=== PATIENT | male | born 1935 | race Caucasian/White ===

== ENCOUNTER → 2016-03-01 | Outpatient (CLI) | payer OTHER ==
[~2016-03-01] MED LIST: CARDIZEM CD180 MG; CORDARONE; COUMADIN OR; GINKGO BILOBA40 M1; GLUCOSAMINE CH1 EAC7; HYDROCODON-ACE1 EAC7 PO; MULTIVITAMINS; PRAVASTATIN SOD20 MG PO
== END ==
LOC: RAD 09:43
DX: M47.812 Spondylosis without myelopathy or radiculopathy, cervical region (principal); M54.2 Cervicalgia

== ENCOUNTER → 2017-01-09 | Outpatient (CLI) | payer OTHER ==
[~2017-01-09] VITALS: Ht 175.3 cm; Wt 79.4 kg
[~2017-01-09] MED LIST changes: +COZAAR 50 MG TA50 M2 PO; +PROBIOTIC1 EAC1 PO; +VANCOMYCIN HCL10 GM PO; +VITAMIN B-121000 MC2 PO; +VITAMIN D3400 UNIT PO; +VOLTAREN GEL 1100 G1 TOP
--- NOTE | ~2017-01-09 | HPC ---
[facility] [address] [place] [address] PAIN MANAGEMENT CONSULTATION Name: TONNY FRIEDMAN JR Room #: REG JESUS Mary#: [id number] Admission: 01/09/17 Attend Phys: Jeremias Guerra DO Discharge: Date of : 33 Report #: [id number] THIS REPORT FOR: //name// CC: Camden Guerra DATE OF SERVICE: 01/09/2017 The patient is a very pleasant 81-year-old gentleman, seen in consultation at the request of Dr. Johnston for evaluation of pain, neck, right shoulder and upper arm. The patient was prior seen in the Pain Clinic back in 2010 for lumbar radicular symptoms, somewhat lost to follow up. He returns to Pain Clinic today noting he developed pain in the right neck and shoulder, has been present for about a year, started without any antecedent trauma and overuse. Pain is exacerbated with any and all cervical movements. He has taken Tylenol, BenGay and topical Aspercreme with some efficacy. He has no radiation of the arm pain; however, the neck does wake him from sleep. Rates it a 9 on a VAS. Describes it as continuous, aching sensation, exacerbated with movement of the head, primarily rotating to the left and moving the right shoulder. Heating pad does seem to help some. Again, no specific radicular symptoms noted. No hand, arm weakness or paresthesia. REVIEW OF SYSTEMS: Complete review of systems attached to chart and was gone over with the patient. A pleasant 81-year-old gentleman recently hospitalized in November for gastritis, diarrhea and Clostridium difficile. He completed a course of vancomycin about 7-10 days ago, notes his stools are starting to firm up. History of hypertension, scarlet fever, skin cancer, atrial fibrillation. Prior decompressive laminectomy in 1976. Again, was treated for lumbar radicular symptoms with transforaminal epidural injections in 2010. He has had a right total knee arthroplasty in 2001, left total knee arthroplasty in 2009. He has been retired for 25 years. Pain impact score is quite high, averaging 70/70. PHYSICAL EXAMINATION: Reveals a 5 feet 9 inches, 175 pounds gentleman, in moderate distress. Blood pressure is 118/67, pulse 84, respirations 16. Cranial nerves 2-12 are grossly intact. Pupils are equal, react to light and accommodation. Extraocular muscles are intact. Cervical range of motion is limited, very tender in the splenius capitis, trapezius and the right side. Tender over the posterior occipital area and superior cervical facets. Upper extremity strength, however, is symmetric about 4/5 to all muscle groups tested. Deep tendon reflexes are preserved for the biceps, triceps, brachioradialis. [facility] [address] [place] [address] PAIN MANAGEMENT CONSULTATION Name: TONNY FRIEDMAN JR Room #: REG JESUS Hernandez#: [id number] Admission: 01/09/17 Attend Phys: Jeremias Guerra DO Discharge: Date of : 33 Report #: [id number] Grasp is symmetric. Tinel's is negative. Does have some thoracic kyphosis. Alert and oriented to person, place and time, judged to be a reasonable historian. Thyroid is modestly enlarged. Heart is regular and rhythmical without murmur. Lungs are clear to auscultation. Gait is tandem. DIAGNOSTIC STUDIES: There is x-rays of the cervical spine from 03/01/2016 noting DJD in the cervical spine. ASSESSMENT: Symptomatic cervical spondylosis, myofascial pain component in a gentleman with history of atrial fibrillation, currently anticoagulated. RECOMMENDATIONS: 1. Voltaren gel topically to the right neck and shoulder. 2. Trigger point injections today to the right splenius capitis and trapezius. 3. Follow up in 2 weeks for reevaluation. We will have the patient hold Coumadin for 5 days in consideration of facet joint injection under fluoroscopy at next visit if indicated clinically. Thank you for allowing me to participate in the patient's care. I will keep you abreast of his progress. PROCEDURE NOTE: Trigger point injection x 2. DESCRIPTION OF PROCEDURE: After written informed consent was obtained, the patient was placed in the prone position. Skin overlying the right splenius capitis and right trapezius were identified, cleansed with alcohol. Using a 25-gauge needle, 40 mg triamcinolone plus 5 mL of 0.5% preservative-free bupivacaine plus 1.5% preservative-free Xylocaine with 1:200,000 epinephrine was injected equally amongst the 2 discrete trigger points. Both needles removed. The area of cleansed and Band-Aids applied. The patient was told to use ice to the area today. Follow up in 2 weeks as noted. <ELECTRONICALLY SIGNED> By: Jeremias Guerra DO 01/11/17 0834 [id number] [id number] Jeremias Guerra DO /nt
[2017-01-09 13:05] VITALS: BP 118/67
== END | disposition home or self-care (01) ==
LOC: PAIN 07:34
DX: M79.1 Myalgia (principal); M47.9 Spondylosis, unspecified; I48.91 Unspecified atrial fibrillation; I10 Essential (primary) hypertension

== ENCOUNTER → 2017-04-11 | Outpatient (CLI) | payer OTHER ==
[~2017-04-11] MED LIST changes: +TYLENOL EXTRA500 MG PO
== END ==
LOC: MRI 08:58
DX: M47.892 Other spondylosis, cervical region (principal); M48.02 Spinal stenosis, cervical region

== ENCOUNTER → 2018-01-03 | Outpatient (CLI) | payer OTHER | LOC: CAT 09:43 | DX: M47.812 Spondylosis without myelopathy or radiculopathy, cervical region (principal); M46.02 Spinal enthesopathy, cervical region ==

== ENCOUNTER → 2018-01-25 | Outpatient (CLI) | payer OTHER ==
[~2018-01-25] VITALS: Ht 175.3 cm; Wt 82.6 kg
[~2018-01-25] MED LIST changes: +NORCO 5-325 TA1 EACH PO; +OXYBUTYNIN 5 MG5 M2 PO
--- NOTE | ~2018-01-25 | HPC ---
[facility] [place] [address] PAIN MANAGEMENT CONSULTATION Name: TONNY FRIEDMAN Room #: REG JESUS FarahBrea#: [id number] Admission: 01/25/18 Attend Phys: Jerry Freeman MD Discharge: Date of : 33 Report #: [id number] THIS REPORT FOR: //name// CC: Camden Freeman DATE OF SERVICE: 01/25/2018 CHIEF COMPLAINT: Cervical pain radiating up into the right occiput. The patient returns to pain clinic today with cervical spondylosis. He now has a CT scan of review performed within the last few months that demonstrates very clearly a C1-C2 severely erosive arthritic joint. This correlates well with his pain. It is tender along the area of the joint and radiates up through the occiput. His most painful activity is rotating his head when he is driving his car. He is unable to take anti-inflammatory drugs due to his use of Coumadin for atrial fibrillation. He has received cervical facet injections previously at C5-C6 and C6-C7 in the past that were of limited benefit. Dr. Guerra provided those injections for him in 2017. CURRENT MEDICINES: Coumadin; multivitamins; losartan; vitamin B12; cholecalciferol; lactobacillus; diclofenac gel intermittently, he does not use it regularly; Tylenol; oxybutynin and he has some [place], but he takes it only for severe pain. ALLERGIES: PENICILLIN. PAST MEDICAL HISTORY: Osteoarthritis with bilateral knee replacements, left in 2001, right in 2009; chronic back pain with lumbar surgery in 1976. History of bursitis. History of atrial fibrillation, on Coumadin. SOCIAL HISTORY: He lives independently. He is able to drive a car and take care of himself in every regard. He says that the pain in his neck, however, is so severe that he is miserable. He denies use of tobacco or alcohol. REVIEW OF SYSTEMS: Positive for some loss of appetite and weight loss. Chronic headaches of an occipital nature related to the referred joint. PHYSICAL EXAMINATION: GENERAL: He is a pleasant gentleman, alert and oriented. No signs of dementia. VITAL SIGNS: His blood pressure is 136/77, heart rate 77, respirations 18. He [facility] [address] [place] [address] PAIN MANAGEMENT CONSULTATION Name: TONNY FRIEDMAN Room #: [facility]#: [id number] Admission: 01/25/18 Attend Phys: Jerry Freeman MD Discharge: Date of : 33 Report #: [id number] is 5 feet 9 inches, 182 pounds, BMI of 26.9. HEENT: Pupils were equal, round, react to light. EOMs are intact. He has some basal skin cancers noted. Examination of the occiput reveals minimal tenderness. NECK: Reveals marked discomfort with rotational movements, particularly rotation to the left, which exacerbates pain in the right upper neck consistent with a C1-C2 arthritis. Localized tenderness there. Lateral tilt also exacerbates pain on the ipsilateral right side. Forward flexion and extension of the neck minimally affect his pain. CHEST: Clear. CARDIAC: Rhythm is irregularly irregular. CT scan is reviewed and I also showed the patient and his daughter the clear evidence of the erosion of the endplates of the lateral masses at C1-C2 on the right. 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 Traumatic unilateral right C1-C2 arthritis. RECOMMENDATION: 1. The most conservative approach here would be to manage this with medication. Unfortunately, he cannot take oral nonsteroidal anti-inflammatory drugs safely while on Coumadin. He can use diclofenac gel, but it must be used 3 times a day to be effective and he must use it continuously. There may be some slight risk with this and its systemic absorption, but it is acceptable, I think if he gets relief. 2. I would suggest this is a gentleman who can continue to use daily hydrocodone indefinitely for chronic pain. I would start at 1/2 of a 5 mg tablet up to 3 times a day and he can use a full tablet for severe pains. He should be cautious about cognitive side effects, dizziness, lightheadedness, and watch for constipation. We discussed the opioid crisis in some detail and the use of opioids appropriately for chronic pain. I believe that this is one of those instances. We have many patients in their 80s, even in their 90s who effectively have used opioid medication as the safest option. 3. An injection can be performed, in fact, I have done so for a very similar case in [place], [place] in October of this year. The injection was dramatic in its relief; however, it was not therapeutic to the point that the duration of response lasted more than 6 weeks. Pain was back to baseline within that timeframe. It is a dangerous injection with the proximity of vertebral artery as it makes its curve and placing a needle in this area repeatedly I would not see as a long-term option. I do not believe it even is necessary as a diagnostic procedure at this time given the findings on the CT scan. A surgical option is available. Dr. Nettles performed the definitive surgery for the patient who is in his early 70s. I would refer the patient back to Dr. Nettles to discuss that option, although he is reluctant to pursue a surgical [address] [address] PAIN MANAGEMENT CONSULTATION Name: TONNY FRIEDMAN JR Room #: REG [facility].#: [id number] Admission: 01/25/18 Attend Phys: Jerry Freeman MD Discharge: Date of : 33 Report #: [id number] treatment. We will continue now on hydrocodone and he was given 2 prescriptions for the next 2 months for 60 tablets per month. I am available for followup in 2 months or if this is not effective or side effects develop. Questions were asked and answered. By: [id number] Jerry Freeman MD /nt
[2018-01-25 14:07] VITALS: BP 136/77
== END ==
LOC: PAIN 08:47
DX: M46.82 Other specified inflammatory spondylopathies, cervical region (principal); M47.812 Spondylosis without myelopathy or radiculopathy, cervical region; Z79.899 Other long term (current) drug therapy

== ENCOUNTER → 2018-06-11 | Outpatient (CLI) | payer OTHER ==
[~2018-06-11] VITALS: Ht 175.3 cm; Wt 83.0 kg
[2018-06-11 08:59] VITALS: BP 131/71
--- NOTE | 2018-06-11 09:01 | NUR ---
Pain Clinic Assessment: 1. History of Osteoarthritis: HANDS,KNEES SPINE History of Rheumatoid Arthritis: Not Applicable 2. Height: 5 ft. 9 in. 175.3 cm. Weight: 183.0 lb. oz. 83.008 kg. Patient's BMI: 35.7 3. Vital Signs: BP: 131/71 Pulse: 81 Resp: 16 Temp: 02 Sat: 96 ECG Mon: 4. Pain Intensity: 0 5. Fall Risk: Dizziness: N Needs help standing or walking: N Fallen in the last 3 months: N Fall risk comments: 6. Patient on Blood Thinner: Warfarin (Coumadin) 7. History of Hypertension: Y 8. Opioid Therapy greater than 6 weeks: N Opiate Contract Signed: 9. Risk Assessment Tool Provided: L0W-0 10. Functional Assessment Tool: 11. Recreational Drug Use: Never Drug Type: Tobacco Use: Never Smoker Tobacco Type: Amount or Packs/day: How Many Years: Alcohol Use: Yes Frequency: Special Occasions Quant:
--- NOTE | 2018-06-12 09:07 | HPC ---
[facility] [place] [address] [address] [place] [address] PAIN MANAGEMENT CONSULTATION Name: TONNY FRIEDMAN Room #: REG JESUS CaicedoBreaSamiBrea#: [id number] Admission: 06/11/18 ������������������ Attend Phys: Jerry Freeman MD Discharge: ������������������ Date of : 33 Report #: [id number] THIS REPORT FOR: //name// CC: Camden Freeman DATE OF SERVICE: 06/11/2018 REASON FOR VISIT: Followup visit for chronic intractable cervical pain with spondylosis and significant C1-C2 degenerative changes. HISTORY OF PRESENT ILLNESS: The patient is a pleasant 83-year-old who was seen today in followup for medication management of chronic cervicalgia. He has degenerative spondylosis of the cervical and lumbar spine. His primary pain has been cervicalgia, which radiates into the occiput. He has been treated with trigger point injections as well as facet injections, most recently in January of 2017. He received benefit but the duration was short. We began treating him with hydrocodone at the lowest effective dose. He currently is taking one-half of a hydrocodone 5/325 daily 4 times on a schedule and is found that this is significantly helpful for his neck pain. He scores his pain today is 0/10. He has some arthritis of the knees as well. He does use some diclofenac gel. He is unable to take nonsteroidal anti-inflammatory drugs safely due to his ongoing use of Coumadin for atrial fibrillation. PQRS REVIEW: 1. He does have osteoarthritis as noted, particularly knees and has undergone bilateral knee replacements. He has spondylosis throughout the spine. 2. Pain score 0/10. 3. Denies use of tobacco or alcohol. 4. He is not a fall risk, nor has he fallen in the last 3 months. 5. He is on Coumadin for atrial fibrillation and follows closely with his primary care service. He is currently not treated for hypertension. He has atrial fibrillation. 6. He has completed an opioid agreement with our clinic. We have reviewed the terms of that agreement. He has completed an opioid risk tool and is considered at low risk for any addiction. We discussed the proper use of medication. He is grateful for the relief, it provides and has no significant side effects. In fact, he denies side effects completely. He carefully safeguards his medication. He is able to live independently and feels that his ability to do so is greatly enhanced by his medication. PHYSICAL EXAMINATION: GENERAL: He is bright sharp 83-year-old pleasant, alert and oriented. No signs [address] [address] PAIN MANAGEMENT CONSULTATION Name: TONNY FRIEDMAN [facility] #[facility] [id number] Admission: 06/11/18 ������������������ Attend Phys: Jerry Freeman MD Discharge: ������������������ Date of : 33 Report #: [id number] of anxiety, depression or overmedication. VITAL SIGNS: Blood pressure 131/71, heart rate 81 and respirations 16. His BMI is 35. MUSCULOSKELETAL: Moves easily from sitting to standing position, walks with a slow but steady gait. Examination of the spine reveals significant rotational limitations of the cervical spine. He has about 15%-25% of normal rotation. He has restrictions also in lateral tilt and forward flexion. Pain is quite minimal with these movements as long as are not taken to extreme. CARDIAC: Rhythm is irregularly irregular today. IMPRESSION: 1. Chronic cervicalgia with C1-C2 erosive arthritis. 2. Atrial fibrillation. 3. Osteoarthritis. RECOMMENDATIONS: We will continue his medication at 3-month intervals. We will follow up per terms of our agreement. We discussed the importance of safeguarding medications and followup visit is planned in September-October of 2018. ��������������������������������������������� <ELECTRONICALLY SIGNED> ���������������������������������������� By: Jerry Freeman MD ��������������������������������������������� 06/12/18 0907 0930 0122 Jerry Freeman MD /nt
== END ==
LOC: PAIN 06:50
DX: G89.29 Other chronic pain (principal); M47.812 Spondylosis without myelopathy or radiculopathy, cervical region; I48.91 Unspecified atrial fibrillation; M19.90 Unspecified osteoarthritis, unspecified site; Z96.653 Presence of artificial knee joint, bilateral; Z79.891 Long term (current) use of opiate analgesic

== ENCOUNTER → 2018-09-24 | Outpatient (CLI) | payer OTHER ==
[~2018-09-24] VITALS: Ht 175.3 cm; Wt 81.4 kg
[2018-09-24 09:18] VITALS: BP 153/84
--- NOTE | 2018-09-24 09:20 | NUR ---
Pain Clinic Assessment: 1. History of Osteoarthritis: HANDS,KNEES SPINE History of Rheumatoid Arthritis: Not Applicable 2. Height: 5 ft. 9 in. 175.3 cm. Weight: 179.4 lb. oz. 81.375 kg. Patient's BMI: 26.5 3. Vital Signs: BP: 153/84 Pulse: 60 Resp: 16 Temp: 02 Sat: 97 ECG Mon: 4. Pain Intensity: 0 5. Fall Risk: Dizziness: N Needs help standing or walking: N Fallen in the last 3 months: N Fall risk comments: 6. Patient on Blood Thinner: Warfarin (Coumadin) 7. History of Hypertension: Y 8. Opioid Therapy greater than 6 weeks: N Opiate Contract Signed: 9. Risk Assessment Tool Provided: L0W-0 10. Functional Assessment Tool: 11. Recreational Drug Use: Never Drug Type: Tobacco Use: Never Smoker Tobacco Type: Amount or Packs/day: How Many Years: Alcohol Use: Yes Frequency: Weekly Quant: 4
--- NOTE | 2018-09-25 08:14 | HPC ---
[facility] [address] [place] [address] PAIN MANAGEMENT CONSULTATION Name: TONNY FRIEDMAN JR Room #: REG TOROBony Hernandez#: [id number] Admission: 09/24/18 Attend Phys: Kandace Nagel Discharge: Date of : 33 Report #: [id number] THIS REPORT FOR: //name// CC: Kandace Johnston DATE OF SERVICE: 09/24/2018 CHIEF COMPLAINT: Chronic intractable cervical pain with spondylosis. HISTORY OF PRESENT ILLNESS: This is a very pleasant 83-year-old gentleman who returns to the pain clinic today for pain in his right neck that radiates into his occipital area. He rates his pain score currently as a 0 because the medicines that he takes are very beneficial. He does tell me that turning his head to the left increases his pain. He takes half a tablet of his hydrocodone several times a day and finds it very beneficial. He denies any problems with constipation or daytime sleepiness. He would like refills of that medicine today. The patient tells me that he is going to have a urological procedure on 10/03 and then a hammertoe surgery on 10/15. The patient will need to be off his Coumadin for this and is wondering about pain medications for these procedures. ALLERGIES: PENICILLIN. CURRENT MEDICATIONS: Hydrocodone 5/325 b.i.d., oxybutynin 5 mg at bedtime, probiotic, vitamin D, vitamin B12, Cozaar, multivitamin, pravastatin and Coumadin. PQRS: 1. He has osteoarthritis in his knees and spondylosis in his lumbar spine. He denies any rheumatoid arthritis. 2. Height is 5 feet 9 inches, weight is 179, BMI is 26. 3. Vital signs, 153/84, pulse is 60, respirations 16, oxygen sat is 97. 4. Pain score is 0. 5. Denies dizziness, does not need help walking or standing, has not fallen in the last 3 months. 6. The patient is on Coumadin and also takes medicine for hypertension. 7. Opioid therapy is greater than 6 weeks; therefore, an opioid signed contract is on the chart. 8. His risk assessment is low. His functional assessment is . 9. Recreational drug use, he denies. He is not a smoker and occasionally drinks alcohol. We did check the prescription monitoring system. The patient is filling appropriately for his medications. We will check a random drug screen on this [address] [address] PAIN MANAGEMENT CONSULTATION Name: TONNY FRIEDMAN JR Room #: REG CLBony Hernandez#: [id number] Admission: 09/24/18 Attend Phys: Kandace Nagel Discharge: Date of : 33 Report #: [id number] patient since there is not one on the chart previously. PHYSICAL EXAMINATION: GENERAL: This is very alert and orientated 83-year-old that appears younger than his stated age. No signs of overmedication. HEENT: Normocephalic, atraumatic. Extraocular eye muscles are intact. Mucous membranes are moist. MUSCULOSKELETAL: The patient complains of tenderness in his right cervical spine, worse with lateral tilt and forward flexion that does increase his pain. Examination reveals significant rotational limitations of the cervical spine. He moves easily from sitting to standing position, walks with a steady gait. His upper and lower extremity strength judged to be 5/5 in all major muscle groups. IMPRESSION: 1. Chronic cervicalgia with a C1-C2 erosive arthritis. 2. Atrial fibrillation. 3. Osteoarthritis. 4. Management of high risk medications under terms of written opioid agreement. We reviewed the fact that opiate medications are being used to provide analgesia adequate to support activities of daily living, not attempting to achieve a specific pain score on the 0-10 Visual Analog Scale. The current opiate medications are providing sufficient analgesia to allow the patient to participate in activities of daily living. The patient is not exhibiting any aberrant behavior suggestive of drug diversion. The patient is not having any adverse reactions to medications. The patient is not suffering from daytime somnolence or mental acuity changes. The patient is managing opiate-induced constipation with appropriate [id number] agents and dietary considerations. The patient was counseled on concern for caution with operating a motor vehicle while using opiate medications. A physical exam was performed and the patient's functional status was evaluated. All patients with back pain were advised against the bed rest greater than 4 days and were advised to return to normal activities. Pain score assessment was noted and the treatment plan was reviewed with the patient. All current medications, both prescribed and OTC were reviewed and reconciled on the electronic medical record. Tobacco screening was accomplished and smoking cessation was advised when indicated. BMI was noted and diet/exercise modification was recommended for all patients following outside normal parameters. I reviewed with the patient today their responsibilities to safeguard prescription medications, reviewed their responsibility to utilize medications only as prescribed by the physician. They are to seek and receive pain medications only from 1 physician group ([facility]). They are to use [address] [address] PAIN MANAGEMENT CONSULTATION Name: TONNY FRIEDMAN JR Room #: REG JESUS Hernandez#: [id number] Admission: 09/24/18 Attend Phys: Kandace Nagel Discharge: Date of : 33 Report #: [id number] pharmacy and keep the clinic informed if they change pharmacies. Their responsibilities include making followup visits in a timely fashion and to avoid abrupt discontinuation of medication usage. Their responsibilities further include bringing their medications (bottles from the pharmacy with residual pills) to the visit for possible confirmation of pill counts and the patient understands it is their responsibility to submit to random drug screens to ensure both that the medications prescribed are present, and that no other controlled substances are present. All prescriptions provided today were generated electronically. PLAN: 1. We discussed treatment options with the patient today. The patient finds the hydrocodone very beneficial, taking half a tablet several times a day. Scripts for hydrocodone were refilled today for #90 the first month and #60 to release in 4 weeks and #60 to release in 8 weeks. 2. We did talk about his upcoming surgeries and postoperative pain control. I encouraged the patient to decrease his hydrocodone use for several days prior to each procedure; therefore, he will hopefully have better pain control postoperatively. The patient verbalizes understanding. We did increase his first month of medications to 3 full tablets a day if he needs it, and therefore, decrease back to his 60 tablets in the 4-week refills. The patient verbalizes understanding how to take his pain medicines. He will call if this is not a significant enough increase after his surgeries. He knows not to take medications from his surgeon since he is under contract with us. 3. The patient is seen in collaboration today with Dr. Jerry Freeman, who did see the patient as well today. <ELECTRONICALLY SIGNED> By: Kandace Nagel 09/25/18 0814 1153 [id number] Kandace Nagel /nasima
== END ==
LOC: PAIN 06:50
DX: M47.812 Spondylosis without myelopathy or radiculopathy, cervical region (principal); I48.91 Unspecified atrial fibrillation; M19.90 Unspecified osteoarthritis, unspecified site; Z79.891 Long term (current) use of opiate analgesic; Z88.0 Allergy status to penicillin

== ENCOUNTER → 2018-11-19 | Outpatient (CLI) | payer OTHER ==
[~2018-11-19] VITALS: Ht 175.3 cm; Wt 79.1 kg
[2018-11-19 09:33] VITALS: BP 124/79
--- NOTE | 2018-11-19 09:41 | NUR ---
Pain Clinic Assessment: 1. History of Osteoarthritis: HANDS,KNEES SPINE History of Rheumatoid Arthritis: Not Applicable 2. Height: 5 ft. 9 in. 175.3 cm. Weight: 174.4 lb. oz. 79.107 kg. Patient's BMI: 25.7 3. Vital Signs: BP: 124/79 Pulse: 80 Resp: 16 Temp: 02 Sat: 98 ECG Mon: 4. Pain Intensity: 7 5. Fall Risk: Dizziness: N Needs help standing or walking: N Fallen in the last 3 months: N Fall risk comments: 6. Patient on Blood Thinner: Warfarin (Coumadin) 7. History of Hypertension: Y 8. Opioid Therapy greater than 6 weeks: N Opiate Contract Signed: 9. Risk Assessment Tool Provided: L0W-0 10. Functional Assessment Tool: 11. Recreational Drug Use: Never Drug Type: Tobacco Use: Never Smoker Tobacco Type: Amount or Packs/day: How Many Years: Alcohol Use: Yes Frequency: Quant:
--- NOTE | 2018-11-20 13:20 | HPC ---
[facility] [address] [place] [address] PAIN MANAGEMENT CONSULTATION Name: TONNY FRIEDMAN JR Room #: REG JESUS Hernandez#: [id number] Admission: 11/19/18 Attend Phys: Kandace Nagel Discharge: Date of : 33 Report #: [id number] THIS REPORT FOR: //name// CC: Kandace Nagel Camdenmehran Johnston DATE OF SERVICE: 11/19/2018 CHIEF COMPLAINT: Chronic intractable cervical pain with spondylosis. HISTORY OF PRESENT ILLNESS: This is a very pleasant 83-year-old gentleman who returns to the pain clinic today for refill of his medication that he uses to help treat his ongoing neck and occipital pain as well his right wrist and bilateral knee pain. He reports his pain score higher than normal today of a 7/10 due to achy, throbby, sharp pain from his arthritis since the weather has gotten colder. He said he has trouble turning his head and bending his knees, but his medication is very beneficial as well as using heating pads. He reports he does much better when the temperature is about 80 degrees. The patient tells me that since we last saw him, he had urological procedure done that took longer to recover that he had anticipated having to have an indwelling catheter for a while; therefore, he has not had his hammertoe surgery that has been postponed until later in January. He has also had several skin cancer lesions removed from his face and we will continue to have few more done in the next month he reports. ALLERGIES: PENICILLIN. CURRENT LIST OF MEDICATIONS: Hydrocodone 5/325 b.i.d. p.r.n., Tylenol Extra Strength p.r.n., Voltaren gel as needed, probiotic, vitamin D, vitamin B12, Cozaar 50 mg daily, multivitamin, pravastatin 20 mg daily and Coumadin 2 mg. PQRS: 1. He has osteoarthritis in his knees, hands and spondylolisthesis in his lumbar spine. He denies any rheumatoid arthritis. 2. Height is 5 feet 9 inches, weight is 174, BMI is 25. 3. Vital signs blood pressure 124/79, pulse is 80, respirations 16, oxygen sat is 98. 4. Pain score is 7/10. 5. Denies dizziness, does not need help walking or standing, has not fallen in the last 3 months. 6. The patient is on Coumadin as well as take medicines for hypertension. 7. Opioid therapy is greater than 6 weeks. 8. Risk assessment tool is low. Functional assessment is . 9. Recreational drug use, he denies. He is not a smoker and occasionally drinks alcohol. [address] [address] PAIN MANAGEMENT CONSULTATION Name: TONNY FRIEDMAN JR Room #: REG [facility] Mary#: [id number] Admission: 11/19/18 Attend Phys: Kandace Nagel Discharge: Date of : 33 Report #: [id number] According to the prescription monitoring system, the patient is filling appropriately for his medications in a timely fashion. He did fill some medications for his urology procedure from his urologist. PHYSICAL EXAMINATION: GENERAL: This is alert and orientated 83-year-old gentleman who appears younger than his stated age. He is placing his current pain score at 7/10 today. He has no signs of overmedication. HEENT: Normocephalic, atraumatic. Extraocular eye muscles are intact. Mucous membranes are moist. MUSCULOSKELETAL: He has tenderness in his cervical spine, worse with lateral tilt and forward flexion causes increase in his pain, especially on the right side. He moves easily from the sitting to standing position. He walks with a steady gait. He has bilateral knee tenderness as well as wrist tenderness today. His upper and lower extremity strength judged to be 5/5 in all major muscle groups. IMPRESSION: 1. 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 2. Atrial fibrillation with ongoing Coumadin therapy. 3. Osteoarthritis. 4. Management of high risk medications under terms of written opioid agreement. We reviewed the fact that opiate medications are being used to provide analgesia adequate to support activities of daily living, not attempting to achieve a specific pain score on the 0-10 Visual Analog Scale. The current opiate medications are providing sufficient analgesia to allow the patient to participate in activities of daily living. The patient is not exhibiting any aberrant behavior suggestive of drug diversion. The patient is not having any adverse reactions to medications. The patient is not suffering from daytime somnolence or mental acuity changes. The patient is managing opiate-induced constipation with appropriate auhn-epr-yinailf agents and dietary considerations. The patient was counseled on concern for caution with operating a motor vehicle while using opiate medications. A physical exam was performed and the patient's functional status was evaluated. All patients with back pain were advised against the bed rest greater than 4 days and were advised to return to normal activities. Pain score assessment was noted and the treatment plan was reviewed with the patient. All current medications, both prescribed and OTC were reviewed and reconciled on the electronic medical record. Tobacco screening was accomplished and smoking cessation was advised when indicated. BMI was noted and diet/exercise modification was recommended for all patients following outside normal parameters. [address] [address] PAIN MANAGEMENT CONSULTATION Name: TONNY FRIEDMAN JR Room #: REG JESUS Hernandez#: [id number] Admission: 11/19/18 Attend Phys: Kandace Nagel Discharge: Date of : 33 Report #: [id number] I reviewed with the patient today their responsibilities to safeguard prescription medications, reviewed their responsibility to utilize medications only as prescribed by the physician. They are to seek and receive pain medications only from 1 physician group ( [facility]). They are to use 1 pharmacy and keep the clinic informed if they change pharmacies. Their responsibilities include making followup visits in a timely fashion and to avoid abrupt discontinuation of medication usage. Their responsibilities further include bringing their medications (bottles from the pharmacy with residual pills) to the visit for possible confirmation of pill counts and the patient understands it is their responsibility to submit to random drug screens to ensure both that the medications prescribed are present, and that no other controlled substances are present. All prescriptions provided today were generated electronically. PLAN: 1. We discussed treatment options with the patient today. He finds the hydrocodone very beneficial taking a half to one tablet twice a day. We will refill his hydrocodone 5/325, #60 for today, 4-week and 8-week release. 2. The patient instructed to call us if he does schedule his hammertoe procedure prior to his next office visit, so we may adjust his hydrocodone use or he may get a small script from his electronics engineering technician and to inform us that he received this prescription. The patient verbalizes understanding. 3. The patient is seen in collaboration with Dr. Jerry Freeman today. <ELECTRONICALLY SIGNED> By: Kandace Nagel 11/20/18 1320 [id number] [id number] Kandace Nagel /nasima
== END ==
LOC: PAIN 07:15
DX: M54.2 Cervicalgia (principal); I48.91 Unspecified atrial fibrillation; M19.90 Unspecified osteoarthritis, unspecified site; Z79.891 Long term (current) use of opiate analgesic

== ENCOUNTER → 2019-02-21 | Outpatient (CLI) | payer OTHER ==
[~2019-02-21] VITALS: Ht 175.3 cm; Wt 80.3 kg
[2019-02-21 13:18] VITALS: BP 138/62
--- NOTE | 2019-02-21 13:44 | NUR ---
Pain Clinic Assessment: 1. History of Osteoarthritis: HANDS,KNEES SPINE History of Rheumatoid Arthritis: Not Applicable 2. Height: 5 ft. 9 in. 175.3 cm. Weight: 177.0 lb. oz. 80.287 kg. Patient's BMI: 26.1 3. Vital Signs: BP: 138/62 Pulse: 72 Resp: 20 Temp: 02 Sat: 100 ECG Mon: 4. Pain Intensity: 6 5. Fall Risk: Dizziness: N Needs help standing or walking: N Fallen in the last 3 months: N Fall risk comments: 6. Patient on Blood Thinner: Warfarin (Coumadin) 7. History of Hypertension: Y 8. Opioid Therapy greater than 6 weeks: N Opiate Contract Signed: 9. Risk Assessment Tool Provided: L0W-0 10. Functional Assessment Tool: 11. Recreational Drug Use: Never Drug Type: Tobacco Use: Never Smoker Tobacco Type: Amount or Packs/day: How Many Years: Alcohol Use: Yes Frequency: Quant:
--- NOTE | 2019-02-25 15:26 | HPC ---
[facility] [address] [place] [address] PAIN MANAGEMENT CONSULTATION Name: TONNY FRIEDMAN Room #: REG JESUS Mary#: [id number] Admission: 02/21/19 Attend Phys: Kandace Nagel Discharge: Date of : 33 Report #: [id number] THIS REPORT FOR: //name// CC: Kandace Freeman MD DATE OF SERVICE: 02/21/2019 CHIEF COMPLAINT: Chronic intractable cervical pain with spondylosis. HISTORY OF PRESENT ILLNESS: This is a very pleasant 83-year-old gentleman who returns to the pain clinic for refill of his hydrocodone medication. He finds this very beneficial in controlling his pain as well as he is using diclofenac gel on his occipital areas as well as on his feet where he does complain of discomfort related to a hammertoe. He also complains of bilateral knee pain. He feels that the colder weather has flared his arthritis, so he is having a slight increase in his pain, rating at a 6/10, but overall he feels the hydrocodone is much beneficial and enabling him to be as active as he would like. He denies any problems with daytime somnolence or constipation as a result of his medications. ALLERGIES: PENICILLIN. CURRENT LIST OF MEDICATIONS: Hydrocodone 5/325 b.i.d. p.r.n., Tylenol Extra Strength p.r.n., diclofenac gel, probiotic, vitamin D, vitamin B, Cozaar, multivitamin, pravastatin and Coumadin. PQRS: 1. He has osteoarthritis in his knees and spondylosis in his lumbar spine. He denies any rheumatoid arthritis. 2. Height is 5 feet 9 inches, weight is 177, BMI is 26. 3. Vital signs 138/62, pulse is 72, respirations 20, oxygen sat is 100. 4. Pain score 6/10. 5. Denies dizziness, does not need help walking or standing, has not fallen in the last 3 months. 6. The patient is on Coumadin therapy as well as hypertension medications. 7. Opioid therapy is greater than 6 weeks; therefore, opioid agreement will be placed in his chart. 8. Risk assessment tool is low. Functional assessment is . 9. Recreational drug use, he denies. He is not a smoker and occasionally drinks alcohol. 10. We did check the prescription monitoring system, the patient is filling appropriately for his medications in a timely fashion. According to the CDC guidelines, his morphine mEq is 10 morphine milliequivalents [place] [address] PAIN MANAGEMENT CONSULTATION Name: TONNY FRIEDMAN JR [id number] Admission: 02/21/19 Attend Phys: Kandace Nagel Discharge: Date of : 33 Report #: [id number] a recent drug screen on the chart that is appropriate as well. PHYSICAL EXAMINATION: GENERAL: This is alert and orientated 83-year-old gentleman who appears younger than his stated age. He has no signs of overmedication, rating his pain score today at 6/10. He is a good historian. HEENT: Normocephalic, atraumatic. Extraocular eye muscles are intact. Mucous membranes are moist. MUSCULOSKELETAL: He has tenderness in his cervical spine, worse with forward flexion. It does radiate into his right occipital area, which is tender as well. He moves easily from the sitting to standing position. He walks with a steady gait. He does complain of some right foot discomfort related to a hammertoe that is tender to the touch. Lower extremity strength judged to be 5/5 in all major muscle groups. IMPRESSION: 1. Chronic cervicalgia at the C1-C2, erosive arthritis. 2. Atrial fibrillation. 3. Osteoarthritis. 4. Management of high risk medications under terms of written opioid agreement. PLAN: 1. We discussed treatment options with the patient today. The patient finds his medication very beneficial. We will refill his hydrocodone 5/325, #60 for today, 4 weeks and 8-week release. The patient instructed to call for an appointment when he fills his last prescription. The patient is not needing any Voltaren gel refill today. 2. The patient is seen today under the collaboration with Dr. Jerry Freeman who I discussed this case with as well as Dr Bandar Guerra. <ELECTRONICALLY SIGNED> By: Kandace Nagel 02/25/19 1526 [id number] [id number] Kandace Nagel /nt
== END ==
LOC: PAIN 06:53
DX: M54.2 Cervicalgia (principal); I48.91 Unspecified atrial fibrillation; M19.90 Unspecified osteoarthritis, unspecified site; Z79.899 Other long term (current) drug therapy

== ENCOUNTER → 2019-03-26 | Outpatient (CLI) | payer OTHER ==
[~2019-03-26] MED LIST changes: +COUMADIN 1MG TAB1 M1 PO; +COUMADIN 2 MG TA2 M1 PO; -COUMADIN OR; +COZAAR 25 MG TA25 M1 PO; +HYDROCODON-ACE1 EAC5 PO; -MULTIVITAMINS; +MULTIVITAMINS PO
== END ==
LOC: SJCVC 10:13
DX: R94.31 Abnormal electrocardiogram [ECG] [EKG] (principal); I11.9 Hypertensive heart disease without heart failure; I48.91 Unspecified atrial fibrillation; I42.8 Other cardiomyopathies; G47.33 Obstructive sleep apnea (adult) (pediatric); E78.00 Pure hypercholesterolemia, unspecified; Z96.653 Presence of artificial knee joint, bilateral; Z79.899 Other long term (current) drug therapy

== ENCOUNTER 2019-04-16 09:14 | Day surgery (SDC) | payer OTHER ==
[~2019-04-16] VITALS: Ht 175.3 cm; Wt 81.6 kg
--- NOTE | ~2019-04-16 | O ---
[facility] [place] [address] OPERATIVE REPORT Name: TONNY FRIEDMAN Room #: DEP [facility]..#: [id number] Admission: 04/16/19 Attend Phys: Rojas Harris DPM Discharge: 04/16/19 Date of : 33 Report #: [id number] THIS REPORT FOR: cc: Camden oJhnston MD,Camden Harris,Rojas Ashraf DPM ~ CC: Rojas Johnston DATE OF SERVICE: 04/16/2019 PREOPERATIVE DIAGNOSIS: Hammertoe deformities 2 through 5 digits, right foot. POSTOPERATIVE DIAGNOSIS: Hammertoe deformities 2 through 5 digits, right foot. PROCEDURE: Arthrodesis second, third and fourth toes; right foot and arthroplasty fifth digit, right foot. ANESTHESIA: IV sedation, local nerve block. Hemostasis was applied well-padded tourniquet. ESTIMATED BLOOD LOSS: Minimal. COMPLICATIONS: There were no complications during the procedure or the anesthesia. INDICATION: Following is a preoperative course. This patient is a very active 84-year-old male who was hampered by painful hammertoe deformities on the right foot, making it difficult to be ambulatory. It was discussed with him to perform the hammertoe procedure allowing him to ambulate immediately postoperatively in order to keep him stable and in good strength for recovery. The patient has discontinued his warfarin for the last 5 days and he understands the risks and complications of surgery as well as technical aspects of the surgery. DESCRIPTION OF PROCEDURE: Following is the operative report. The patient was wheeled to the operating room in usual supine condition, transferred to the operating table, given IV sedation. Once the IV sedation was found to be adequate, local nerve block was given to the digits and the right foot. Upon reentering the operating room, anesthesia was checked and found to be adequate. Esmarch tourniquet was used to exsanguinate the blood from the right foot and the ankle tourniquet elevated to 250 mmHg. Attention was first directed to the second digit on the right foot where an extensor tenotomy was performed and a capsulotomy to the second MPJ dorsally which released the contracture of the second digit. Attention was then directed to the proximal interphalangeal joint [facility] [address] [place] [address] OPERATIVE REPORT Name: TONNY FRIEDMAN JR Room #: [facility].#: [id number] Admission: 04/16/19 Attend Phys: Rojas Harris DPM Discharge: 04/16/19 Date of : 33 Report #: [id number] where 2 converging semielliptical incisions were made and the proximal phalangeal head and base of the middle phalanx were resected using a sagittal saw. Using C-arm radiography, a cannulated wire was used to place the second toe in a rectus position. Next, the 2.4 cannulated screw was obtained and measured to be approximately 38 mm in length. This was placed in over the cannulated wire and confirmed good position. Clinically, the toe stayed in a rectus corrected position and closure of the skin performed with a horizontal mattress 4-0 nylon suture. The same procedure on the third toe was performed with the addition of a DIPJ access to decrease the contracture at that joint using a rotary bur. Cannulated wire was inserted in the same fashion using C-arm radiography. Good placement was visualized and the length measured approximately 36 mm. A 36 mm 2.4 cannulated screw was then obtained and placed into the site and again good correction maintained after release of the dorsal extensor and capsular tissue to the third MPJ. Attention was then directed to the fourth digit where the extensor capsulotomy was performed to the fourth MPJ; 2 converging semielliptical incisions were made at the PIPJ of the fourth digit. Access was gained and using a sagittal saw the arthrodesis was performed and the fourth toe again was checked using C-arm radiography after insertion of the cannulated wire and found to be in good position. This was measured to be 30 mm in length for a cannulated screw of 2.4 diameter. This was placed into the site and again confirmed using C-arm radiography a good clinical and anatomical position. Closure again was performed using 4-0 nylon simple suture in horizontal mattress fashion. The fifth digit was then dressed where a dorsal extensor and fifth MPJ capsulotomy was performed correcting the dorsal contracture at the MPJ of the fifth digit. Next, 2 converging semielliptical incisions were made at the PIPJ and a generous portion of the proximal phalangeal head was removed causing correction of the fifth toe. Remaining bony prominences were removed using a bony rongeur. The wound was copiously flushed with sterile saline and closed using 4-0 nylon suture in horizontal mattress fashion. Cap refill immediately returned upon release of the tourniquet and a compression dressing placed on the right foot. The patient left the operating room in stable condition. We will follow up in about 3 days for postoperative wound management and was given Lortab 7.5 mg/325 for pain management. He was prophylaxed preoperatively with 600 mg of clindamycin IV and was not given any prophylaxis due to his recent C. diff diagnosis during the hospitalization through taking Keflex. We will observe the wound closely on his first postoperative visit in 3 days. By: [id number] Rojas Harris, RAMON /nasima
[2019-04-16 10:05] VITALS: BP 130/72
[2019-04-16 10:17] LABS: INR 1.5; PROTIME 15.6 Seconds (9.3-11.4)
== END 2019-04-16 14:00 | disposition home or self-care (01) ==
LOC: OR 09:14 → TBA 09:15 → OR 10:46
PROVIDERS: Podiatrist
DX: M20.41 Other hammer toe(s) (acquired), right foot (principal); M24.574 Contracture, right foot; I10 Essential (primary) hypertension; E78.5 Hyperlipidemia, unspecified; Z98.890 Other specified postprocedural states; Z79.899 Other long term (current) drug therapy; Z85.828 Personal history of other malignant neoplasm of skin; Z85.46 Personal history of malignant neoplasm of prostate; Z96.653 Presence of artificial knee joint, bilateral; Z98.41 Cataract extraction status, right eye; Z88.0 Allergy status to penicillin
CPT/HCPCS: 50010; 50101; 50386; 50951; 53341; 56526; 57091; 57178; 57493; 57494; 57495; 62110; 62850; 70005

== ENCOUNTER → 2019-06-10 | Outpatient (CLI) | payer OTHER ==
[~2019-06-10] VITALS: Ht 175.3 cm; Wt 76.7 kg
[~2019-06-10] MED LIST changes: +NORCO 5-325 TA1 EAC1 PO
[2019-06-10 09:09] VITALS: BP 129/73
--- NOTE | 2019-06-10 09:14 | NUR ---
Pain Clinic Assessment: 1. History of Osteoarthritis: HANDS,KNEES SPINE History of Rheumatoid Arthritis: Not Applicable 2. Height: 5 ft. 9 in. 175.3 cm. Weight: 169.0 lb. oz. 76.658 kg. Patient's BMI: 24.9 3. Vital Signs: BP: 129/73 Pulse: 64 Resp: 16 Temp: 02 Sat: 98 ECG Mon: 4. Pain Intensity: 4 5. Fall Risk: Dizziness: N Needs help standing or walking: N Fallen in the last 3 months: N Fall risk comments: 6. Patient on Blood Thinner: Warfarin (Coumadin) 7. History of Hypertension: Y 8. Opioid Therapy greater than 6 weeks: N Opiate Contract Signed: 9. Risk Assessment Tool Provided: L0W-0 10. Functional Assessment Tool: 11. Recreational Drug Use: Never Drug Type: Tobacco Use: Never Smoker Tobacco Type: Amount or Packs/day: How Many Years: Alcohol Use: Yes Frequency: Quant:
--- NOTE | 2019-06-11 14:45 | HPC ---
[facility] [address] [place] [address] PAIN MANAGEMENT CONSULTATION Name: TONNY FRIEDMAN JR Room #: REG JESUS Sofi.#: [id number] Admission: 06/10/19 Attend Phys: Kandace Nagel Discharge: Date of : 33 Report #: [id number] THIS REPORT FOR: cc: Camden Johnston MD, Eric K. MD Hocker,Kandace HARMON ~ CC: Jerry Freeman MD DATE OF SERVICE: 06/10/2019 CHIEF COMPLAINT: Chronic intractable cervical pain with spondylosis. HISTORY OF PRESENT ILLNESS: This is a very pleasant 84-year-old gentleman who returns to the pain clinic today for refill of his hydrocodone that he takes for his ongoing cervical pain. Today though he is rating his neck as a 0/10. He recently had a hammertoe surgery in early April on his right foot that is where he is complaining of most significant pain of 4/10 today. He states he put his shoe on for the first time on Monday and it is throbbing currently from the pressure. He also reports that he developed C. diff after his surgery by taking antibiotics. He had had a bout of this in 2018 and it has returned with these antibiotics. He continues to have issues and is on antibiotic treatment currently. The patient states normally his neck pain is worse with cold weather, turning his head. He uses a heating pad as well as his medications and finds them beneficial. ALLERGIES: PENICILLIN. CURRENT LIST OF MEDICATIONS: Losartan, hydrocodone 5/325 p.r.n., diclofenac gel, Coumadin, Tylenol Extra Strength, lactobacillus, vitamin D, vitamin B12, multivitamin, pravastatin and Coumadin. PQRS: 1. The patient has osteoarthritis in his upper and lower extremities and his spine and spondylosis and denies any rheumatoid arthritis. 2. Height is 5 feet 9, unsure of his weight. 3. Vital signs 149/77, pulse is 74, respirations 16, oxygen sat is 100. 4. Pain score is 6-7. 5. Denies dizziness. Does need help walking, he uses a cane at all times, has not fallen in the last 3 months. 6. The patient is not on any blood thinners, but does take medicine for hypertension. His opioid therapy is greater than 6 weeks; therefore, an opioid signed contract is on the chart. Risk assessment tool is low. Functional assessment is 35/70. 7. Recreational drug use, he denies. He is not a smoker and [place] [address] PAIN MANAGEMENT CONSULTATION Name: TONNY FRIEDMAN Room #: REG [facility]#: [id number] Admission: 06/10/19 Attend Phys: Kandace Nagel Discharge: Date of : 33 Report #: [id number] According to the prescription monitoring system, the patient is due to fill our medication today. He did report that he filled 3 prescriptions, which is present on the prescription monitoring from Dr. Harris his supervisor printing shop. During that time, he was not filling our medications. He is on time for his prescription fills. His morphine mEq according to the CDC guidelines is 10. PHYSICAL EXAMINATION: GENERAL: This is alert and orientated 84-year-old gentleman who appears his stated age, placing his pain score at 0-4. He is a good historian. His speech is fluent. HEENT: Normocephalic, atraumatic. Extraocular eye muscles are intact. Mucous membranes are moist. MUSCULOSKELETAL: He has tenderness in his cervical spine, worse with forward flexion. Tenderness is also located in his right occipital area. He uses a cane for ambulation and moves easily from sitting to standing position. Does complain of significant right foot pain from recent surgery. It is not visualized today. Lower extremity strength judged to be 5/5 in all major muscle groups. ABDOMEN: The patient complains of tenderness in his lower abdomen and reports currently having diarrhea. IMPRESSION: 1. Chronic cervicalgia at C1-C2 erosive arthritis. 2. Atrial fibrillation. 3. Osteoarthritis. 4. Clostridium difficile. 5. Management of high risk medications under terms of written opioid agreement. We reviewed the fact that opiate medications are being used to provide analgesia adequate to support activities of daily living, not attempting to achieve a specific pain score on the 0-10 Visual Analog Scale. The current opiate medications are providing sufficient analgesia to allow the patient to participate in activities of daily living. The patient is not exhibiting any aberrant behavior suggestive of drug diversion. The patient is not having any adverse reactions to medications. The patient is not suffering from daytime somnolence or mental acuity changes. The patient is managing opiate-induced constipation with appropriate grkw-deq-dpkdiqh agents and dietary considerations. The patient was counseled on concern for caution with operating a motor vehicle while using opiate medications. PLAN: 1. We discussed treatment options with the patient today. The patient reports he currently has C. diff, did not tell us prior to his appointment today. He reports he is on antibiotic therapy for this. He has had a history in the past that was resolved, but with the antibiotics from his recent feet surgery it did reoccur. [facility] [address] [place] [address] PAIN MANAGEMENT CONSULTATION Name: TONNY FRIEDMAN JR Room #: PATRICK [facility]rea#: [id number] Admission: 06/10/19 Attend Phys: Kandace Nagel Discharge: Date of : 33 Report #: [id number] 2. We will refill his opioid medications today of hydrocodone 5/325, #60 for today 4 and 8-week supply. These will be sent electronically by Dr. Jerry Freeman. 3. The patient is seen today in collaboration with Dr. Jerry Freeman. The patient will return in 3 months. <ELECTRONICALLY SIGNED> By: Kandace Nagel 06/11/19 1445 1001 1017 Kandace Nagel /nt
== END ==
LOC: PAIN 06:48
DX: M47.812 Spondylosis without myelopathy or radiculopathy, cervical region (principal); I48.91 Unspecified atrial fibrillation; M19.90 Unspecified osteoarthritis, unspecified site; F11.20 Opioid dependence, uncomplicated; A04.72 Enterocolitis due to Clostridium difficile, not specified as recurrent

== ENCOUNTER → 2019-09-09 | Outpatient (CLI) | payer OTHER ==
[~2019-09-09] VITALS: Ht 175.3 cm; Wt 78.4 kg
[2019-09-09 13:31] VITALS: BP 100/60
--- NOTE | 2019-09-09 13:57 | NUR ---
Pain Clinic Assessment: 1. History of Osteoarthritis: HANDS,KNEES SPINE History of Rheumatoid Arthritis: Not Applicable 2. Height: 5 ft. 9 in. 175.3 cm. Weight: 172.8 lb. oz. 78.382 kg. Patient's BMI: 25.5 3. Vital Signs: BP: 100/60 Pulse: 77 Resp: 16 Temp: 02 Sat: 99 ECG Mon: 4. Pain Intensity: 6 5. Fall Risk: Dizziness: N Needs help standing or walking: Y Fallen in the last 3 months: N Fall risk comments: 6. Patient on Blood Thinner: Warfarin (Coumadin) 7. History of Hypertension: Y 8. Opioid Therapy greater than 6 weeks: N Opiate Contract Signed: 9. Risk Assessment Tool Provided: L0W-0 10. Functional Assessment Tool: 11. Recreational Drug Use: Never Drug Type: Tobacco Use: Never Smoker Tobacco Type: Amount or Packs/day: How Many Years: Alcohol Use: Yes Frequency: Quant:
--- NOTE | 2019-09-10 10:12 | HPC ---
[facility] [place] [address] PAIN MANAGEMENT CONSULTATION Name: TONNY FRIEDMAN JR Room #: REG JESUS Anabella#: [id number] Admission: 09/09/19 Attend Phys: Kandace Nagel Discharge: Date of : 33 Report #: [id number] THIS REPORT FOR: cc: Camden Johnston MD, Eric K. MD Hocker,Kandace HARMON ~ CC: Jerry Freeman MD DATE OF SERVICE: 09/09/2019 CHIEF COMPLAINT: Cervical pain with spondylosis. HISTORY OF PRESENT ILLNESS: This is a very pleasant 84-year-old gentleman who returns to the pain clinic today for refill of his medications. Today, he is reporting a pain score is 6/10, most of that pain is located in right side of his neck. He does have some ongoing right foot pain from a hammer toe surgery that is slow to heal and he does complain of some arthritic changes in his right wrist. He reports that his pain is mostly an aching, throbbing pain, worse with cold weather or rainy weather. He does report Monday was a significant pain day due to a recent rain. He feels that heating pad and taking his medications are beneficial. The patient does continue to live in his own house, taking care of the inside. He does have somebody assist with yard work. He uses a cane when he ambulates and is hopeful to get a walker soon, so he can build his strength and endurance in his lower extremities. He denies any problems with constipation or overmedicated feeling as a result of his medications. ALLERGIES: PENICILLIN. CURRENT LIST OF MEDICATIONS: Hydrocodone 5/325 p.r.n., Losartan, diclofenac gel, warfarin, Tylenol, lactobacillus, vitamin D, vitamin B12, multivitamin and pravastatin. PQRS: 1. He has history of osteoarthritis in his knees, hands and spine. Denies any rheumatoid arthritis. 2. Height is 5 feet 9 inches, weight is 172, BMI is 25. 3. Vital signs 100/60, pulse is 77, respirations 16, oxygen sat is 99%. 4. Pain score 6/10. 5. Denies dizziness. Does use a cane for ambulation, has not fallen in the last 3 months. 6. The patient is on Coumadin as well as medicines for hypertension. 7. Opioid therapy is greater than [address] an opioid signed contract in his chart. Risk assessment tool is [place] [address] PAIN MANAGEMENT CONSULTATION Name: TONNY FRIEDMAN Room #: REG [facility]#: [id number] Admission: 09/09/19 Attend Phys: Kandace Nagel Discharge: Date of : 33 Report #: [id number] . 8. Recreational drug use, he denies. He is not a smoker and occasionally drinks alcohol. According to the prescription monitoring system, the patient is filling appropriately. His morphine milliequivalent is 10 MME per day. There is a random drug screen on the chart that is appropriate for him. PHYSICAL EXAMINATION: GENERAL: This is alert and orientated, very pleasant 84-year-old gentleman, rating his pain score at 6/10. He is a good historian. HEENT: Normocephalic, atraumatic. Extraocular eye muscles are intact. He is wearing mask and glasses. MUSCULOSKELETAL: He has tenderness in his cervical spine that is increased with flexion and extension. He uses a cane for ambulation, but moves easily from sitting to standing position. His gait is slightly antalgic. Some ongoing right foot pain from recent hammertoe surgery. Complains of tenderness in his right wrist. No edema noted. Lower extremity strength judged to be 5/5 in all major muscle groups. IMPRESSION: 1. 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 2. Atrial fibrillation, on Coumadin therapy. 3. Osteoarthritis. 4. Ongoing right foot pain. 5. Management of medications under terms of written agreement. We reviewed the fact that opiate medications are being used to provide analgesia adequate to support activities of daily living, not attempting to achieve a specific pain score on the 0-10 Visual Analog Scale. The current opiate medications are providing sufficient analgesia to allow the patient to participate in activities of daily living. The patient is not exhibiting any aberrant behavior suggestive of drug diversion. The patient is not having any adverse reactions to medications. The patient is not suffering from daytime somnolence or mental acuity changes. The patient is managing opiate-induced constipation with appropriate eupv-qzv-ehdkqnx agents and dietary considerations. The patient was counseled on concern for caution with operating a motor vehicle while using opiate medications. PLAN: 1. We discussed treatment options with the patient today. The patient continues to be very active at home, utilizing his hydrocodone 5/325 as needed. This does allow him to function and keep his house. He does also utilize his diclofenac gel on his neck and wrist when it becomes problematic. Today, we will have Dr. Jerry Freeman send his hydrocodone 5/325, #60 for today, a 4 week and 8-week release. [address] [address] PAIN MANAGEMENT CONSULTATION Name: TONNY FRIEDMAN Room #: PATRICK FarahBrea#: [id number] Admission: 09/09/19 Attend Phys: Kandace Nagel Discharge: Date of : 33 Report #: [id number] 2. The patient is seen in collaboration with Dr. Jerry Freeman. He will return in 3 months and call as needed. <ELECTRONICALLY SIGNED> By: Kandace Nagel 09/10/19 1012 [id number] [id number] Kandace Nagel /nt
== END ==
LOC: PAIN 06:52
PROVIDERS: ATTEND Clinical Nurse Specialist Adult Health
DX: M47.812 Spondylosis without myelopathy or radiculopathy, cervical region (principal); M79.671 Pain in right foot; F11.20 Opioid dependence, uncomplicated; I48.91 Unspecified atrial fibrillation; Z79.899 Other long term (current) drug therapy; Z88.0 Allergy status to penicillin

== ENCOUNTER → 2019-12-09 | Outpatient (CLI) | payer OTHER ==
[~2019-12-09] VITALS: Ht 175.3 cm; Wt 80.4 kg
[~2019-12-09] MED LIST changes: +VITAMIN C500 M1 PO
[2019-12-09 09:46] VITALS: BP 127/68
--- NOTE | 2019-12-09 10:18 | NUR ---
Pain Clinic Assessment: 1. History of Osteoarthritis: HANDS,KNEES SPINE History of Rheumatoid Arthritis: Not Applicable 2. Height: 5 ft. 9 in. 175.3 cm. Weight: 177.2 lb. oz. 80.377 kg. Patient's BMI: 26.2 3. Vital Signs: BP: 127/68 Pulse: 76 Resp: 18 Temp: 02 Sat: 99 ECG Mon: 4. Pain Intensity: 7 5. Fall Risk: Dizziness: N Needs help standing or walking: Y Fallen in the last 3 months: N Fall risk comments: 6. Patient on Blood Thinner: Warfarin (Coumadin) 7. History of Hypertension: Y 8. Opioid Therapy greater than 6 weeks: N Opiate Contract Signed: 9. Risk Assessment Tool Provided: L0W-0 10. Functional Assessment Tool: 11. Recreational Drug Use: Never Drug Type: Tobacco Use: Never Smoker Tobacco Type: Amount or Packs/day: How Many Years: Alcohol Use: Yes Frequency: Monthly Quant: 6 BEER
--- NOTE | 2019-12-10 08:49 | HPC ---
Former[facility] [address] [place] [address] PAIN MANAGEMENT CONSULTATION Name: TONNY FRIEDMAN Room #: REG JESUS Mary#: [id number] Admission: 12/09/19 Attend Phys: Kandace Nagel Discharge: Date of : 33 Report #: [id number] CC: Kandace Freeman MD DATE OF SERVICE: 12/09/2019 CHIEF COMPLAINT: Cervical pain radiating into his right occiput. HISTORY OF PRESENT ILLNESS: This is a very pleasant 84-year-old gentleman who returns to the pain clinic today for refills of his medication. He reports that his pain is slightly elevated today at 7/10 in his cervical region that does radiate into his right occipital area. He states it is worse in the colder weather and more painful when he is driving his car, requiring him to rotate his head, but he does find the hydrocodone very beneficial as well as a heating pad, taking one medication daily and occasionally two. The patient has also been utilizing Voltaren gel to his neck several times a day. He is unable to take anti-inflammatory medications due to his warfarin that he takes for his atrial fibrillation. He is thankful for these medications that Dr. Freeman prescribes for him, so he does not need to have surgery. He believes that his age, he needs to avoid surgery at all costs and feels that the medications enable him to do that. He denies any constipation. He does utilize fruits and vegetables as well as fiber. ALLERGIES: PENICILLIN. CURRENT LIST OF MEDICATIONS: Hydrocodone 5/325 p.r.n., calcium, losartan, diclofenac gel, warfarin, probiotic, vitamin D3, vitamin B12, multivitamin, pravastatin. PQRS: 1. He has history of osteoarthritis in his knees, hands and spine. Denies any rheumatoid arthritis. 2. Height is 5 feet 9 inches, weight is 177, BMI is 26. Vital signs 127/68, pulse is 76, respirations 18, oxygen sat is 99%. 3. Pain score is 7/10. 4. Denies dizziness. Does need assistance with a cane for ambulation, but has not fallen in the last 3 months. 5. The patient is on warfarin as well as medicines for hypertension. 6. Opioid therapy is greater than 6 weeks; therefore, an opioid signed contract is on the chart. Risk assessment is low at 2/10. 7. Recreational drug use, he denies. He is not a smoker and occasionally drinks alcohol. According to the prescription monitoring system, he is filling appropriately in a timely fashion. His morphine mEq is 2/10. We will have him sign an opioid signed contract today. PHYSICAL EXAMINATION: GENERAL: This is a very pleasant, alert and orientated gentleman who answers all my questions appropriately. HEENT: Pupils equal, round and reactive to light. MUSCULOSKELETAL: He has some pain in his occipital area with slight tenderness, cervical spine is decreased in lateral tilt, but does increase pain as well as forward flexion and extension. IMPRESSION: 1. 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 2. Cervicalgia. 3. Osteoarthritis. 4. Atrial fibrillation, on warfarin therapy. 5. Management of high risk medications under terms of written opioid agreement. We reviewed the fact that opiate medications are being used to provide analgesia adequate to support activities of daily living, not attempting to achieve a specific pain score on the 0-10 Visual Analog Scale. The current opiate medications are providing sufficient analgesia to allow the patient to participate in activities of daily living. The patient is not exhibiting any aberrant behavior suggestive of drug diversion. The patient is not having any adverse reactions to medications. The patient is not suffering from daytime somnolence or mental acuity changes. The patient is managing opiate-induced constipation with appropriate iqtz-cjp-txxczlv agents and dietary considerations. The patient was counseled on concern for caution with operating a motor vehicle while using opiate medications. A physical exam was performed and the patient's functional status was evaluated. All patients with back pain were advised against the bed rest greater than 4 days and were advised to return to normal activities. Pain score assessment was noted and the treatment plan was reviewed with the patient. All current medications, both prescribed and OTC were reviewed and reconciled on the electronic medical record. Tobacco screening was accomplished and smoking cessation was advised when indicated. BMI was noted and diet/exercise modification was recommended for all patients following outside normal parameters. I reviewed with the patient today their responsibilities to safeguard prescription medications, reviewed their responsibility to utilize medications only as prescribed by the physician. They are to seek and receive pain medications only from 1 physician group ( [facility]). They are to use 1 pharmacy and keep the clinic informed if they change pharmacies. Their responsibilities include making followup visits in a timely fashion and to avoid abrupt discontinuation of medication usage. Their responsibilities further include bringing their medications (bottles from the pharmacy with residual pills) to the visit for possible confirmation of pill counts and the patient understands it is their responsibility to submit to random drug screens to ensure both that the medications prescribed are present, and that no other controlled substances are present. All prescriptions provided today were generated electronically. PLAN: 1. We discussed treatment options with the patient today. We will have the patient sign an opioid agreement. We have been prescribing his hydrocodone that he takes 1-2 daily for quite some time. He does find this very beneficial in helping relieve his pain and has been only getting medications from our prescriber. We will have him sign this today. 2. Dr. Jerry Freeman will send electronically his hydrocodone 5/325, #60. The patient finds these very beneficial. He is due to fill these today. He does safeguard his meds at all time. 3. We will collect a random drug screen on this patient at his next visit. The patient in greater than 3 months' time. The patient is seen today in collaboration with Dr. Jerry Freeman. <ELECTRONICALLY SIGNED> By: Kandace Nagel 12/10/19 0849 [id number] [id number] Kandace Nagel /nt
== END ==
LOC: PAIN 07:03
PROVIDERS: ATTEND Clinical Nurse Specialist Adult Health
DX: M47.812 Spondylosis without myelopathy or radiculopathy, cervical region (principal); I48.91 Unspecified atrial fibrillation; Z79.01 Long term (current) use of anticoagulants; Z79.891 Long term (current) use of opiate analgesic

== ENCOUNTER → 2020-01-08 | Outpatient (CLI) | payer OTHER | LOC: SJCVC 11:13 | PROVIDERS: ATTEND Internal Medicine Cardiovascular Disease | DX: I48.91 Unspecified atrial fibrillation (principal); I42.8 Other cardiomyopathies; I10 Essential (primary) hypertension; R60.9 Edema, unspecified; Z72.89 Other problems related to lifestyle; Z88.0 Allergy status to penicillin; Z79.01 Long term (current) use of anticoagulants; Z79.899 Other long term (current) drug therapy ==

== ENCOUNTER → 2020-03-30 | Outpatient (CLI) | payer OTHER ==
[~2020-03-30] VITALS: Ht 175.3 cm; Wt 80.8 kg
[2020-03-30 13:34] VITALS: BP 145/71
--- NOTE | 2020-03-30 13:50 | NUR ---
Pain Clinic Assessment: 1. History of Osteoarthritis: HANDS,KNEES SPINE History of Rheumatoid Arthritis: Not Applicable 2. Height: 5 ft. 9 in. 175.3 cm. Weight: 178.2 lb. oz. 80.831 kg. Patient's BMI: 26.3 3. Vital Signs: BP: 145/71 Pulse: 72 Resp: 18 Temp: 02 Sat: 98 ECG Mon: 4. Pain Intensity: 8 5. Fall Risk: Dizziness: N Needs help standing or walking: Y Fallen in the last 3 months: N Fall risk comments: 6. Patient on Blood Thinner: Warfarin (Coumadin) 7. History of Hypertension: Y 8. Opioid Therapy greater than 6 weeks: N Opiate Contract Signed: 12/10/19 9. Risk Assessment Tool Provided: L0W-0 10. Functional Assessment Tool: 11. Recreational Drug Use: Never Drug Type: Tobacco Use: Never Smoker Tobacco Type: Amount or Packs/day: How Many Years: Alcohol Use: Yes Frequency: Monthly Quant: 1
--- NOTE | 2020-03-31 09:10 | HPC ---
[facility] [place] [address] PAIN MANAGEMENT CONSULTATION Name: TONNY FRIEDMAN Room #: REG JESUS Mary#: [id number] Admission: 03/30/20 Attend Phys: Kandace Nagel Discharge: Date of : 33 Report #: [id number] THIS REPORT FOR: cc: Camden Johnston MD, Eric K. MD Hocker,Kandace HARMON ~ DATE OF SERVICE: 03/30/2020 CHIEF COMPLAINT: Cervical pain radiating to his right occipital area, joint pain. HISTORY OF PRESENT ILLNESS: This is a very pleasant 85-year-old gentleman who returns to the pain clinic today for refill of his hydrocodone. The patient reports that he has been having increased pain since the weather has changed. He reports that his joints of knees and arms have been very problematic. So today, he is rating his pain slightly higher in an 8/10, typically his pain is only located in his neck and occipital area on his right side and rates his pain at 6. He reports an aching, throbbing, sharp sensation that is worse with the colder weather. He has been utilizing a heating pad, lying down and using his medications. He reported to me he had not been out of the house in almost 3 weeks. Today, he is requesting refills of his hydrocodone that he believes are beneficial and helping him, be active when he is able to use long as whether that is appropriate for him to be outside and not fall. The patient does report that he recently received on 03/12/20 his first COVID vaccination and is scheduled on the for his second one. ALLERGIES: PENICILLIN. CURRENT LIST OF MEDICATIONS: Hydrocodone 5/325 b.i.d., vitamin C, losartan, diclofenac gel, warfarin, Tylenol, probiotics, vitamin D, vitamin B12, multivitamin, pravastatin. PQRS: 1. He has osteoarthritic changes in his hands, knees and spine. Denies any rheumatoid arthritis. 2. Height is 5 feet 9 inches, weight is 178, BMI is 26. 3. Vital signs; blood pressure 145/71, pulse is 72, respirations 18, oxygen sat is 98%. 4. Pain score from 6-8. 5. Denies dizziness. Does use assistance with cane for ambulation and has not fallen in the last 3 months. 6. The patient is on warfarin as well as medication for hypertension. 7. His opioid therapy is greater than 6 weeks; therefore, an opioid signed contract is on the chart. 8. His risk assessment is low. [place] [address] PAIN MANAGEMENT CONSULTATION Name: TONNY FRIEDMAN JR Room #: REG [facility] Mary#: [id number] Admission: 03/30/20 Attend Phys: Kandace Nagel Discharge: Date of : 33 Report #: [id number] 9. Recreational drug use, he denies. He is not a smoker and occasionally drinks alcohol. According to the prescription monitoring system, the patient is filling appropriately. His last refill was in February. He is past due to fill his medications today. His morphine mEq is under 10. PHYSICAL EXAMINATION: GENERAL: This is alert and orientated, very pleasant 85-year-old gentleman who appears his stated age, placing his pain at 6-8. He is a good historian and his speech is fluent. HEENT: Pupils are equal, round and reactive to light. Normocephalic and atraumatic. Mucous membranes are moist. He is wearing a mask and glasses. MUSCULOSKELETAL: He has tenderness in his cervical spine that is increased with cervical provocation testing, especially in the forward motion. Tenderness in his right occipital area as well. He walks with an antalgic gait using a walker at all times. He moves slowly from the seated position. His lower extremity strength judged to be equal at 5/5 tenderness in his knees bilaterally with no edema noted. IMPRESSION: 1. Chronic cervicalgia at the C1-C2 erosive arthritis. 2. Atrial fibrillation, on warfarin therapy. 3. Osteoarthritis of multiple joints. 4. Management of high risk medications under terms of written opioid agreement. We reviewed the fact that opiate medications are being used to provide analgesia adequate to support activities of daily living, not attempting to achieve a specific pain score on the 0-10 Visual Analog Scale. The current opiate medications are providing sufficient analgesia to allow the patient to participate in activities of daily living. The patient is not exhibiting any aberrant behavior suggestive of drug diversion. The patient is not having any adverse reactions to medications. The patient is not suffering from daytime somnolence or mental acuity changes. The patient is managing opiate-induced constipation with appropriate wiri-knv-axoqycx agents and dietary considerations. The patient was counseled on concern for caution with operating a motor vehicle while using opiate medications. PLAN: 1. We discussed treatment options with the patient today. The patient would like to continue on his hydrocodone 5/325, #60. These were sent by Dr. Jerry Freeman to fill on 03/30, 04/27 and 05/25. 2. We did discuss that he has some problems with constipation that is intermittent. I encouraged him to utilize fiber. He does take a probiotic on a daily basis. 3. We did discuss his upcoming COVID vaccination. I encouraged him to take [address] [address] PAIN MANAGEMENT CONSULTATION Name: TONNY FRIEDMAN Sami PAUL Room #: [facility] JESUS Hernandez#: [id number] Admission: 03/30/20 Attend Phys: Kandace Nagel Discharge: Date of : 33 Report #: [id number] Tylenol as needed 6-8 hours after his injection and to utilize ice to his arm if it is sore. The patient is thankful that he has been able to get the first injection. 4. The patient is seen today in collaboration with Dr. Jerry Freeman who I did discuss this case with over the phone today. <ELECTRONICALLY SIGNED> By: Kandace Nagel 03/31/20 0910 1423 [id number] Kandace Nagel /nt
== END ==
LOC: PAIN 06:59
PROVIDERS: ATTEND Clinical Nurse Specialist Adult Health
DX: M47.812 Spondylosis without myelopathy or radiculopathy, cervical region (principal); I48.91 Unspecified atrial fibrillation; M19.90 Unspecified osteoarthritis, unspecified site; F11.20 Opioid dependence, uncomplicated; Z88.8 Allergy status to other drugs, medicaments and biological substances; Z79.899 Other long term (current) drug therapy

== ENCOUNTER → 2020-08-25 | Outpatient (CLI) | payer OTHER | LOC: SJCVCIMAG 09:02 | PROVIDERS: ATTEND Internal Medicine Cardiovascular Disease | DX: R94.31 Abnormal electrocardiogram [ECG] [EKG] (principal); I08.8 Other rheumatic multiple valve diseases; I45.4 Nonspecific intraventricular block; I48.91 Unspecified atrial fibrillation; R60.9 Edema, unspecified; I25.5 Ischemic cardiomyopathy; E78.00 Pure hypercholesterolemia, unspecified; J44.9 Chronic obstructive pulmonary disease, unspecified; G47.33 Obstructive sleep apnea (adult) (pediatric); Z79.01 Long term (current) use of anticoagulants; Z79.899 Other long term (current) drug therapy; Z88.0 Allergy status to penicillin; Z72.89 Other problems related to lifestyle ==